=== PATIENT | female | born 1945 | race Caucasian/White ===

== ENCOUNTER → 2017-02-19 | Outpatient (CLI) | payer OTHER | END | disposition home or self-care (01) | LOC: CFH 09:40 | PROVIDERS: ATTEND Genetic Counselor, MS | DX: Z12.31 Encounter for screening mammogram for malignant neoplasm of breast (principal); M81.0 Age-related osteoporosis without current pathological fracture | CPT/HCPCS: 77080; G0202 ==

== ENCOUNTER → 2017-03-15 | Outpatient (CLI) | payer OTHER | END | disposition home or self-care (01) | LOC: CFH 13:46 | PROVIDERS: ATTEND Genetic Counselor, MS | DX: Z72.0 Tobacco use (principal); Z87.891 Personal history of nicotine dependence; Z12.2 Encounter for screening for malignant neoplasm of respiratory organs; R91.8 Other nonspecific abnormal finding of lung field; I25.10 Atherosclerotic heart disease of native coronary artery without angina pectoris | CPT/HCPCS: G0297 ==

== ENCOUNTER → 2017-03-27 | Outpatient (CLI) | payer OTHER | END | disposition home or self-care (01) | LOC: PETCFH 11:26 | PROVIDERS: ATTEND Genetic Counselor, MS | DX: R91.1 Solitary pulmonary nodule (principal) | CPT/HCPCS: 78815; A9552 ==

== ENCOUNTER → 2017-05-11 | Outpatient (CLI) | payer OTHER ==
[~2017-05-11] MED LIST: ASPI-496 PO; CARV6.252 PO; FURO20TA3 PO; HYDR200T PO; OXYC-302 PO; PRAV40TA2 PO; PRED50TA PO; RIVA20TA PO; SERT25TA3 PO; potassium PO
[2017-05-11 12:28] LABS: ASPARTATE AMINO TRANSFERASE 16 U/L (15-37); BLOOD UREA NITROGEN 16 mg/dL (7-18)
== END | disposition home or self-care (01) ==
LOC: STAR 11:02
PROVIDERS: ATTEND Internal Medicine Pulmonary Disease
DX: Z01.818 Encounter for other preprocedural examination (principal); R94.31 Abnormal electrocardiogram [ECG] [EKG]
CPT/HCPCS: 36415; 80053; 93005

== ENCOUNTER 2017-05-18 05:16 | Day surgery (SDC) | payer OTHER ==
[2017-05-11 11:40] VITALS: BP 103/59
[~2017-05-18] VITALS: Ht 148.6 cm; Wt 61.0 kg
[2017-05-18] MEDS ORDERED: LACTATED RINGERS 1,000 ML IV SCH (05:51)
[2017-05-18] MEDS ORDERED: LIDOCAINE 1%, 2ML SQ PRN (06:00)
[2017-05-18 06:02] VITALS: BP 103/59
[2017-05-18] MEDS ORDERED: ALBUTEROL SULFATE 2.5 MG/3 ML ONE (07:04)
[2017-05-18] MEDS ORDERED: PHENYLEPHRINE 10 MG/ML ONE (07:44)
[2017-05-18] MEDS ORDERED: EPHEDRINE 50 MG/ML, 1ML ONE (07:44)
[2017-05-18] MEDS ORDERED: DEXAMETHASONE 4 MG/ML, 1ML ONE (07:44)
[2017-05-18] MEDS ORDERED: ONDANSETRON 2MG/ML, 2ML ONE (07:44)
[2017-05-18] MEDS ORDERED: LIDOCAINE 1%, 10ML ONE (07:44)
[2017-05-18] MEDS ORDERED: ALBUTEROL SULFATE 200 PUFFS/8.5 GR INH ONE (07:44)
[2017-05-18] MEDS ORDERED: PROPOFOL 10 MG/ML, 20ML ONE (07:44)
[2017-05-18] MEDS ORDERED: FENTANYL PF 250 MCG/5ML ONE (07:45)
[2017-05-18] MEDS ORDERED: EPHEDRINE 50 MG/ML, 1ML IVPush PRN (09:30)
[2017-05-18] MEDS ORDERED: OXYcodone 5 MG/5 ML ORAL.SOL UDC PO PRN (09:30)
[2017-05-18] MEDS ORDERED: HYDROcodone/APAP 7.5-325MG/15ML UDC PO PRN (09:30)
[2017-05-18] MEDS ORDERED: hydrALAzine 20 MG/ML, 1ML IV PRN (09:30)
[2017-05-18] MEDS ORDERED: ONDANSETRON 2MG/ML, 2ML IVPush PRN (09:30)
[2017-05-18] MEDS ORDERED: PROMETHAZINE 25 MG/ML, 1ML IV PRN (09:30)
[2017-05-18] MEDS ORDERED: LABETALOL 5MG/ML, 20ML IV PRN (09:30)
[2017-05-18] MEDS ORDERED: HYDROmorphone 1 MG/ML, 1ML IV PRN (09:30)
[2017-05-18] MEDS ORDERED: ACETAMINOPHEN 325 MG TABLET PO PRN (09:30)
[2017-05-18] MEDS ORDERED: ALBUTEROL/IPRATROPIUM 2.5MG/0.5MG, 3 ML NPPB PRN (09:30)
[2017-05-18] MEDS ORDERED: FENTANYL PF 100 MCG/2ML IV PRN (09:30)
[2017-05-18] MEDS ORDERED: ALBUTEROL SULFATE 2.5 MG/3 ML NPPB PRN (09:30)
== END 2017-05-18 12:40 | disposition home or self-care (01) ==
LOC: OUT 05:16
PROVIDERS: ATTEND Internal Medicine Critical Care Medicine
DX: J42 Unspecified chronic bronchitis (principal); I25.2 Old myocardial infarction; I73.9 Peripheral vascular disease, unspecified; F19.90 Other psychoactive substance use, unspecified, uncomplicated; J45.909 Unspecified asthma, uncomplicated; Z95.5 Presence of coronary angioplasty implant and graft; Z90.710 Acquired absence of both cervix and uterus; Z98.890 Other specified postprocedural states; Z72.89 Other problems related to lifestyle
CPT/HCPCS: 31623; 31624; 31627; 31628; 71010; 71250; 88104; 88112; 88172; 88173; 88177; 88305; 94640; J1100; J2370; J2405; J2704; J3010; J3490; J7120; 31629; 76001

== ENCOUNTER → 2017-09-04 | Outpatient (CLI) | payer OTHER ==
[~2017-09-04] MED LIST changes: +OMNIPAQUE 350 MG/ML, 75ML BOTTLE ONE
== END | disposition home or self-care (01) ==
LOC: CFH 12:14
PROVIDERS: ATTEND Internal Medicine Pulmonary Disease
DX: J90 Pleural effusion, not elsewhere classified (principal); R91.8 Other nonspecific abnormal finding of lung field; R59.0 Localized enlarged lymph nodes; J98.59 Other diseases of mediastinum, not elsewhere classified
CPT/HCPCS: 71260; 82565; Q9967

== ENCOUNTER 2017-10-23 08:49 | Day surgery (SDC) | payer OTHER ==
[~2017-10-23] VITALS: Ht 147.3 cm; Wt 62.0 kg
[~2017-10-23 08:49] MED LIST changes: -OMNIPAQUE 350 MG/ML, 75ML BOTTLE ONE
[2017-10-23] MEDS ORDERED: PRAV20TA2 PO (09:35)
[2017-10-23 09:36] VITALS: BP 151/69
[2017-10-23] MEDS ORDERED: SODIUM CHLORIDE 0.9% 1,000 ML IV SCH (09:37)
[2017-10-23] MEDS ORDERED: MIDAZOLAM 1 MG/ML, 5ML ONE (10:30)
[2017-10-23] MEDS ORDERED: NALOXONE 1 MG/ML, 2ML ONE (10:30)
[2017-10-23] MEDS ORDERED: FLUMAZENIL 0.1 MG/1 ML, 5ML ONE (10:30)
[2017-10-23] MEDS ORDERED: FENTANYL PF 100 MCG/2ML ONE (10:30)
== END 2017-10-23 14:00 ==
LOC: OUT 08:49
PROVIDERS: ATTEND Internal Medicine Critical Care Medicine
DX: J98.4 Other disorders of lung (principal); I10 Essential (primary) hypertension; J44.9 Chronic obstructive pulmonary disease, unspecified; Z79.82 Long term (current) use of aspirin
CPT/HCPCS: 32405; 71010; 77012; 88305; 99156; J2250; J3010; J7030; 99157; J2310

== ENCOUNTER 2017-11-05 10:01 | Day surgery (SDC) | payer OTHER ==
[~2017-11-05] VITALS: Ht 148.6 cm; Wt 62.7 kg
[~2017-11-05 10:01] MED LIST changes: +PRAV20TA2 PO
[2017-11-05 10:55] VITALS: BP 145/69
[2017-11-05] MEDS ORDERED: SODIUM CHLORIDE 0.9% 1,000 ML IV ONE (11:00)
[2017-11-05] MEDS ORDERED: PLEASE ENTER HEIGHT AND WEIGHT MC SCH (11:00)
[2017-11-05] MEDS ORDERED: FENTANYL PF 100 MCG/2ML ONE (12:28)
[2017-11-05] MEDS ORDERED: FLUMAZENIL 0.1 MG/1 ML, 5ML ONE (12:28)
[2017-11-05] MEDS ORDERED: MIDAZOLAM 1 MG/ML, 5ML ONE ×2 (12:28)
[2017-11-05] MEDS ORDERED: NALOXONE 1 MG/ML, 2ML ONE (12:29)
== END 2017-11-05 15:00 ==
LOC: OUT 10:01
PROVIDERS: ATTEND Internal Medicine Critical Care Medicine
DX: C34.90 Malignant neoplasm of unspecified part of unspecified bronchus or lung (principal); I10 Essential (primary) hypertension; J44.9 Chronic obstructive pulmonary disease, unspecified
CPT/HCPCS: 32405; 71010; 77012; 88305; 99156; J2250; J3010; J7030; 99157; J2310

== ENCOUNTER → 2017-11-16 | Outpatient (CLI) | payer OTHER | END | disposition home or self-care (01) | LOC: ROC 09:57 | PROVIDERS: ATTEND Radiology Radiation Oncology | DX: C34.11 Malignant neoplasm of upper lobe, right bronchus or lung (principal); J44.9 Chronic obstructive pulmonary disease, unspecified; I10 Essential (primary) hypertension; I25.10 Atherosclerotic heart disease of native coronary artery without angina pectoris; I73.9 Peripheral vascular disease, unspecified; F32.9 Major depressive disorder, single episode, unspecified | CPT/HCPCS: 99214; G0463 ==

== ENCOUNTER → 2018-03-14 | Outpatient (CLI) | payer OTHER ==
[~2018-03-14] MED LIST changes: -HYDR200T PO; +HYDR200T72 PO
== END | disposition home or self-care (01) ==
LOC: ROC 07:49
PROVIDERS: ATTEND Radiology Radiation Oncology
DX: Z08 Encounter for follow-up examination after completed treatment for malignant neoplasm (principal); C34.11 Malignant neoplasm of upper lobe, right bronchus or lung; M06.9 Rheumatoid arthritis, unspecified; Z79.82 Long term (current) use of aspirin
CPT/HCPCS: 99213; G0463

== ENCOUNTER → 2018-04-10 | Outpatient (CLI) | payer OTHER | END | disposition home or self-care (01) | LOC: CFH 13:22 | PROVIDERS: ATTEND Radiology Radiation Oncology | DX: M48.54XA Collapsed vertebra, not elsewhere classified, thoracic region, initial encounter for fracture (principal); M51.04 Intervertebral disc disorders with myelopathy, thoracic region; C34.11 Malignant neoplasm of upper lobe, right bronchus or lung | CPT/HCPCS: 72072 ==

== ENCOUNTER → 2018-06-21 | Outpatient (CLI) | payer OTHER ==
[~2018-06-21] MED LIST changes: +ALEN70TA3 PO; +CEFD300C37 PO; +DEXAMETHASONE; +DOXY100T PO; +FURO-93 PO; +OXYC-307 PO; +PRED20TA PO
== END ==
LOC: ROC 08:58
PROVIDERS: ATTEND Radiology Radiation Oncology
DX: Z02.9 Encounter for administrative examinations, unspecified (principal)

== ENCOUNTER → 2019-01-17 | Outpatient (CLI) | payer OTHER ==
[~2019-01-17] MED LIST changes: +OMNIPAQUE 350 MG/ML, 75ML BOTTLE ONE
== END | disposition home or self-care (01) ==
LOC: RAD 13:31
PROVIDERS: ATTEND Genetic Counselor, MS
DX: J98.11 Atelectasis (principal); R91.1 Solitary pulmonary nodule; M48.54XA Collapsed vertebra, not elsewhere classified, thoracic region, initial encounter for fracture; R06.02 Shortness of breath; E78.5 Hyperlipidemia, unspecified; Z85.118 Personal history of other malignant neoplasm of bronchus and lung
CPT/HCPCS: 71260; Q9967

== ENCOUNTER → 2020-01-28 | Outpatient (CLI) | payer MEDICARE ==
[~2020-01-28] MED LIST changes: +OMNIPAQUE 350 MG/ML, 100ML BOTTLE ONE; -OMNIPAQUE 350 MG/ML, 75ML BOTTLE ONE
== END | disposition home or self-care (01) ==
LOC: CFH 11:57
PROVIDERS: ATTEND Radiology Radiation Oncology
DX: R91.1 Solitary pulmonary nodule (principal); E04.9 Nontoxic goiter, unspecified; I25.10 Atherosclerotic heart disease of native coronary artery without angina pectoris; I70.0 Atherosclerosis of aorta; M81.0 Age-related osteoporosis without current pathological fracture; M43.8X4 Other specified deforming dorsopathies, thoracic region; J98.4 Other disorders of lung; K80.20 Calculus of gallbladder without cholecystitis without obstruction; K57.30 Diverticulosis of large intestine without perforation or abscess without bleeding; I70.8 Atherosclerosis of other arteries
CPT/HCPCS: 71250; 75635; 82565; Q9967

== ENCOUNTER 2020-06-02 12:18 | Outpatient (CLI) | payer MEDICARE ==
[~2020-06-02 12:18] MED LIST changes: -OMNIPAQUE 350 MG/ML, 100ML BOTTLE ONE
== END 2020-06-02 23:59 | disposition home or self-care (01) ==
LOC: CFH 12:18
PROVIDERS: ATTEND Radiology Radiation Oncology
DX: C34.11 Malignant neoplasm of upper lobe, right bronchus or lung (principal); M48.54XA Collapsed vertebra, not elsewhere classified, thoracic region, initial encounter for fracture; R91.8 Other nonspecific abnormal finding of lung field; E04.9 Nontoxic goiter, unspecified
CPT/HCPCS: 71250

== ENCOUNTER 2020-06-11 11:18 | Outpatient (CLI) | payer MEDICARE | END 2020-06-11 23:59 | disposition home or self-care (01) | LOC: ROC 11:18 | PROVIDERS: ATTEND Radiology Radiation Oncology | DX: C34.11 Malignant neoplasm of upper lobe, right bronchus or lung (principal) | CPT/HCPCS: G0463-95 ==